=== PATIENT | male | born 1930 | race Caucasian/White ===

== ENCOUNTER → 2017-11-28 | Day surgery (SDC) | payer OTHER ==
[~2017-11-28] VITALS: Ht 170.2 cm; Wt 71.7 kg
[~2017-11-28] MED LIST: ASPIRIN EC81 M1 PO; ATORVASTATIN CA80 M1 PO; GERI-HYDROLAC222 ML TOP; METOPROLOL TART25 M1 PO; METROGEL60 GM TOP; MULTIVITAMINS1 EAC9 PO; NIFEDIPINE ER30 M1 PO; PRINIVIL20 M1 PO; TERAZOSIN HCL2 M1 PO
--- NOTE | 2017-11-28 10:40 | Operative Report ---
Operative/Inv Procedure Report Surgery Date: 11/28/17 Name of Procedure: Microlaryngoscopy with diode laser excision of vocal cord lesion, right Pre-Operative Diagnosis: Vocal cord lesion, right Post-Operative Diagnosis: Same Estimated Blood Loss: scant Surgeon/Home Organizer: Mary Ann Lawson MD Anesthesia: general endotracheal tube Specimens: Right vocal cord lesion Complications: Non- Condition: Stable on leaving the OR Operative Indication: Right vocal cord lesion Operative/Procedure Note Note: Patient was brought to the operating room. Placed on the operating table in supine position. First timeout was performed including patient's name, ID number and planned procedure. Then general oroendotracheal anesthesia was induced. Endotracheal tube #7 was used and it was secured with tape over the left lip commissure. Next patient was positioned for microlaryngoscopy. Operating room table was rotated 90 away from the anesthesia team toward patient's right. Head was sterilely draped. Anterior commissure laryngoscope was then used and laryngoscopy was performed. A dental guard was used for protection of the upper teeth. Anterior commissure laryngoscope was then used and laryngoscopy was performed. The anterior commissure laryngoscope was introduced into the oral cavity, oropharynx, hypopharynx and larynx. Examination of the larynx and hypopharynx was then carried. Base of tongue, valleculae appeared to be clear both right and left piriform sinuses were clear. Epiglottis over the lingual and laryngeal surfaces was clear. Aryepiglottic folds were intact. Glottis was visualized. Right vocal cord had all exophytic sessile lesion, approximately 5 mm in size, located over the mid free surface of the vocal cord. Left vocal cord was entirely clear. Laryngoscope was fixed in place. Laryngoscope was fixed in place with an suspension arm and the microscope and was connected. The lesion was visualized under the microscope. Diode laser was used to set at a power of 4 W superpulse. At first the lesion was grasped with pickups and excised with microlaryngeal scissors. The neuro paddy saturated with epinephrine was placed over the excision site. After a few minutes of waiting time laser was applied. Laser fiber was channeled through a suction like port. The laser was used to control the bleeding and remove residual lesion. At the end of the procedure biopsy site looked clear. There was no evidence of residual lesion. There was no bleeding. Microscope was detached. Laryngoscope was dismounted from the suspension apparatus and removed. Surgery was completed. The patient was reawakened, extubated and taken to the recovery room in good condition. There were no complications. Estimated blood loss was minimal. Findings: Vocal cord, right0.5 cm sessile lesion located over the mid free surface of the vocal cord Discharge Disposition: Same Day Admissions
== END ==
LOC: STS 03:09
DX: C32.0 Malignant neoplasm of glottis (principal); R49.0 Dysphonia; I12.9 Hypertensive chronic kidney disease with stage 1 through stage 4 chronic kidney disease, or unspecified chronic kidney disease; N18.3 Chronic kidney disease, stage 3 (moderate); Z87.891 Personal history of nicotine dependence; I25.10 Atherosclerotic heart disease of native coronary artery without angina pectoris
CPT/HCPCS: 93005; 93010; J0131; J0171; J0690; J1100; J2405; J3490